=== PATIENT | male | born 1980 ===

== ENCOUNTER 2021-01-22 08:09 | Outpatient (CLI) | payer BC, SELFPAY ==
--- NOTE | 2021-01-22 08:00 | RT.EKG_ITS ---
APPROVED REPORT Exam: Resting ECG Reason for Exam: New Patient Office Visit Patient Location: O HR:51 bpm ECG Measurements Heart Rate 51 AXIS NE 144 P -5 QRSd 83 QRS 36 QT 390 T 22 QTc 360 Conclusion Sinus rhythm...normal P axis, V-rate 50- 99 RSR' in V1 or V2, probably normal variant...small R' only Baseline wander in lead(s) I,aVL,V6 Normal Electrocardiogram
== END 2021-01-22 08:10 | disposition home or self-care (01) ==
LOC: DI.CARD 10:54
PROVIDERS: Visit Provider Internal Medicine Cardiovascular Disease
DX: R07.89 Other chest pain (principal)
CPT/HCPCS: 93010